=== PATIENT | female | born 1985 | race Caucasian/White ===

== ENCOUNTER 2017-02-12 16:08 | Emergency (ER) | payer SELFPAY ==
[2017-02-12 16:26] VITALS: BP 105/65
--- NOTE | 2017-02-12 16:50 | ER Document Report ---
ED General - General Chief Complaint: Hand Pain Stated Complaint: ANXIETY Time Seen by Provider: 02/12/17 16:38 Mode of Arrival: Ambulatory Information source: Patient TRAVEL OUTSIDE OF THE [place] IN LAST 30 DAYS: No - HPI Patient complains to provider of: Anxiety, recent drug abuse, hand cramping Onset: Yesterday Quality of pain: Cramping Severity: Mild Pain Level: 1 Associated symptoms: None Exacerbated by: Denies Relieved by: Denies Notes: Patient is a 31-year-old female who presents to the emergency room complaining of anxiety related to recent drug abuse, states she was clean for approximately 5 months which she did on her own without assistance from a formal detox or rehab program, stating that she was using meth and heroin on a daily basis, she had an argument with her boyfriend and basically immediately turned back to the drugs, having shot up both heroin and meth yesterday, immediately regretted it and has been having anxiety attacks about it since, leading to her presentation in the emergency room today, she denies any suicidal or homicidal ideation - Related Data Allergies/Adverse Reactions: Penicillins Allergy (Severe, Verified 02/12/17 16:32) Rash, Swelling erythromycin base [Erythromycin Base] Allergy (Intermediate, Verified 02/12/17 16:32) Rash, Swelling levofloxacin [From Levaquin] Allergy (Intermediate, Verified 02/12/17 16:32) Rash, Swelling cefazolin [Cefazolin] Allergy (Verified 02/12/17 16:32) Rash, swelling Home Medications: Current Home Medications No Home Medications 02/12/17 [History] Past Medical History - General Information source: Patient - Social History Smoking Status: Current Every Day Smoker Chew tobacco use (# tins/day): No Frequency of alcohol use: Occasional Drug Abuse: Heroin, Methamphetamine Family History: Reviewed & Not Pertinent, CAD, Hypertension Patient has suicidal ideation: No Patient has homicidal ideation: No - Past Medical History Cardiac Medical History: Reports: Hx DVT - STATES NO LONGER ON COUMADIN OR LOVENOX PER PRIMARY CARE PROVIDER, Hx Pulmonary Embolism Denies: Hx Coronary Artery Disease, Hx Heart Attack, Hx Hypertension Pulmonary Medical History: Denies: Hx Asthma, Hx Bronchitis, Hx COPD, Hx Pneumonia Neurological Medical History: Reports: Hx Migraine. Denies: Hx Cerebrovascular Accident, Hx Seizures Endocrine Medical History: Denies: Hx Diabetes Mellitus Type 1, Hx Diabetes Mellitus Type 2 Renal/ Medical History: Reports: Hx Kidney Stones, Hx Ovarian Cysts. Denies: Hx Peritoneal Dialysis Musculoskeltal Medical History: Denies Hx Arthritis Psychiatric Medical History: Reports: Hx Attention Deficit Hyperactivity Disorder, Hx Bipolar Disorder Infectious Medical History: Reports: Hx C-Diff Past Surgical History: Reports: Hx Kidney (Renal Surgery) - 11/2011, lithotrypsy , Hx Myringotomy, Hx Tubal Ligation. Denies: Hx Appendectomy, Hx Cholecystectomy, Hx Pacemaker - Immunizations Immunizations up to date: Yes Hx Diphtheria, Pertussis, Tetanus Vaccination: Yes - 2009 Review of Systems - Review of Systems Constitutional: No symptoms reported EENT: No symptoms reported Cardiovascular: No symptoms reported Respiratory: No symptoms reported Gastrointestinal: No symptoms reported Genitourinary: No symptoms reported Female Genitourinary: No symptoms reported Musculoskeletal: No symptoms reported Skin: No symptoms reported Hematologic/Lymphatic: No symptoms reported Neurological/Psychological: See HPI -: Yes All other systems reviewed and negative Physical Exam - Vital signs Vitals: Temp Pulse Resp BP Pulse Ox 98.5 F 84 18 105/65 100 02/12/17 16:15 02/12/17 16:15 02/12/17 16:15 02/12/17 16:15 02/12/17 16:15 Interpretation: Normal - General General appearance: Appears well, Alert - HEENT Head: Normocephalic, Atraumatic Eyes: Normal Pupils: PERRL - Respiratory Respiratory status: No respiratory distress Chest status: Nontender Breath sounds: Normal Chest palpation: Normal - Cardiovascular Rhythm: Regular Heart sounds: Normal auscultation Murmur: No - Abdominal Inspection: Normal Distension: No distension Bowel sounds: Normal Tenderness: Nontender Organomegaly: No organomegaly - Back Back: Normal, Nontender - Extremities General upper extremity: Nontender, Normal color, Normal ROM, Normal temperature General lower extremity: Normal inspection, Nontender, Normal color, Normal ROM , Normal temperature, Normal weight bearing. No: Juliana's sign Elbow: Other - Bruising to bilateral antecubital spaces consistent with recent injections - Neurological Neuro grossly intact: Yes Cognition: Normal Orientation: AAOx4 Ledbetter Coma Scale Eye Opening: Spontaneous Vlad Coma Scale Verbal: Oriented Ledbetter Coma Scale Motor: Obeys Commands Vlad Coma Scale Total: 15 Speech: Normal Motor strength normal: LUE, RUE, LLE, RLE Sensory: Normal - Psychological Associated symptoms: Normal affect, Normal mood - Skin Skin Temperature: Warm Skin Moisture: Dry Skin Color: Normal Course - Re-evaluation Re-evalutation: 02/12/17 16:55 Patient is calm and cooperative, denies suicidal or homicidal ideation, admits to recent drug abuse which is likely causing her current symptoms, she does report feeling much better since being the emergency room, symptoms are not present at time of my evaluation and she states she is ready to go home, patient was provided with a list of mental health resources in the area, advised to follow-up appropriately or return if symptoms worsen, patient acknowledges understanding and agreement with this plan - Vital Signs Vital signs: Temp Pulse Resp BP Pulse Ox 98.5 F 84 18 105/65 100 02/12/17 16:15 02/12/17 16:15 02/12/17 16:15 02/12/17 16:15 02/12/17 16:15 Discharge - Discharge Clinical Impression: Substance abuse, Anxiety Condition: Stable Disposition: HOME, SELF-CARE Instructions: Anxiety ([facility]) Additional Instructions: Follow up with your primary care provider in one to 2 days. Return to the emergency room immediately if symptoms worsen or any additional concerns.
== END 2017-02-12 16:56 | disposition home or self-care (01) ==
LOC: ER 16:08
DX: F19.10 Other psychoactive substance abuse, uncomplicated (principal); F11.10 Opioid abuse, uncomplicated; F41.9 Anxiety disorder, unspecified; M79.643 Pain in unspecified hand; F17.210 Nicotine dependence, cigarettes, uncomplicated
CPT/HCPCS: 99283

== ENCOUNTER 2017-07-29 19:59 | Emergency (ER) | payer SELFPAY ==
--- NOTE | 2017-07-29 20:52 | ER Document Report ---
ED Medical Screen (RME) - General Chief Complaint: Abdominal Pain Stated Complaint: ABDOMINAL PAIN Time Seen by Provider: 07/29/17 20:50 Notes: one day of ruq pain, vomiting TRAVEL OUTSIDE OF THE [place] IN LAST 30 DAYS: No - Related Data Allergies/Adverse Reactions: Penicillins Allergy (Severe, Verified 04/19/17 19:42) Rash, Swelling erythromycin base [Erythromycin Base] Allergy (Intermediate, Verified 04/19/17 19:42) Rash, Swelling levofloxacin [From Levaquin] Allergy (Intermediate, Verified 04/19/17 19:42) Rash, Swelling cefazolin [Cefazolin] Allergy (Verified 04/19/17 19:42) Rash, swelling Past Medical History - Social History Frequency of alcohol use: Social Drug Abuse: None - Past Medical History Cardiac Medical History: Reports: Hx DVT - STATES NO LONGER ON COUMADIN OR LOVENOX PER PRIMARY CARE PROVIDER, Hx Pulmonary Embolism Denies: Hx Coronary Artery Disease, Hx Heart Attack, Hx Hypertension Pulmonary Medical History: Denies: Hx Asthma, Hx Bronchitis, Hx COPD, Hx Pneumonia Neurological Medical History: Reports: Hx Migraine. Denies: Hx Cerebrovascular Accident, Hx Seizures Endocrine Medical History: Denies: Hx Diabetes Mellitus Type 1, Hx Diabetes Mellitus Type 2 Renal/ Medical History: Reports: Hx Kidney Stones, Hx Ovarian Cysts. Denies: Hx Peritoneal Dialysis Musculoskeltal Medical History: Denies Hx Arthritis Psychiatric Medical History: Reports: Hx Attention Deficit Hyperactivity Disorder, Hx Bipolar Disorder Infectious Medical History: Reports: Hx C-Diff, Hx MRSA Past Surgical History: Reports: Hx Kidney (Renal Surgery) - 11/2011, lithotrypsy , Hx Myringotomy, Hx Tubal Ligation. Denies: Hx Appendectomy, Hx Cholecystectomy, Hx Pacemaker - Immunizations Immunizations up to date: Yes Hx Diphtheria, Pertussis, Tetanus Vaccination: Yes - 2009 Physical Exam - Vital signs Vitals: Temp Pulse Resp BP Pulse Ox 98.8 F 62 14 118/69 100 07/29/17 20:14 07/29/17 20:14 07/29/17 20:14 07/29/17 20:14 07/29/17 20:14 Course - Vital Signs Vital signs: Temp Pulse Resp BP Pulse Ox 98.8 F 62 14 118/69 100 07/29/17 20:14 07/29/17 20:14 07/29/17 20:14 07/29/17 20:14 07/29/17 20:14
[2017-07-29 21:24] LABS: ABSOLUTE EOSINOPHILS # (AUTO) 0.2 10^3/uL (0.0-0.6); ABSOLUTE LYMPHOCYTES (AUTO) 2.1 10^3/uL (0.5-4.7); ABSOLUTE MONOCYTES (AUTO) 0.6 10^3/uL (0.1-1.4); ABSOLUTE NEUT (AUTO) 4.7 10^3/uL (1.7-8.2); BASOPHILS % (AUTO) 0.3 % (0-2); HEMATOCRIT 41.4 % (36.0-47.0); HEMOGLOBIN 14.3 g/dL (12.0-15.5); LYMPHOCYTES % (AUTO) 27.5 % (13-45); MEAN CORPUSCULAR HEMOGLOBIN 35.5 pg (27.0-33.4); MEAN CORPUSCULAR HGB CONC 34.5 g/dL (32.0-36.0); MEAN CORPUSCULAR VOLUME 103 fl (80-97); MONOCYTES % (AUTO) 7.4 % (3-13); PLATELET COUNT 225 10^3/uL (150-450); RED BLOOD COUNT 4.02 10^6/uL (3.72-5.28); SEGMENTED NEUTROPHILS % (AUTO) 62.8 % (42-78); TOTAL CELLS COUNTED % (AUTO) 100 %; WHITE BLOOD COUNT 7.5 10^3/uL (4.0-10.5)
[2017-07-29 21:39] LABS: APPEARANCE,URINE CLOUDY; BILIRUBIN,URINE NEGATIVE (NEGATIVE); COLOR,URINE YELLOW; GLUCOSE, URINE NEGATIVE (NEGATIVE); KETONES,URINE NEGATIVE (NEGATIVE); LEUKOCYTE ESTERASE,URINE SMALL (NEGATIVE); NITRITE,URINE POSITIVE (NEGATIVE); PROTEIN,URINE NEGATIVE (NEGATIVE); URINE SPECIFIC GRAVITY 1.027; UROBILINOGEN,URINE NEGATIVE mg/dL (<2.0)
[2017-07-29 21:40] LABS: ALANINE AMINOTRANSFERASE 213 U/L (9-52); ALBUMIN 4.8 g/dL (3.5-5.0); ALKALINE PHOSPHATASE 81 U/L (38-126); ANION GAP 10 (5-19); ASPARTATE AMINO TRANSFERASE 76 U/L (14-36); BILIRUBIN,DIRECT 0.2 mg/dL (0.0-0.4); BILIRUBIN,TOTAL 0.3 mg/dL (0.2-1.3); BLOOD UREA NITROGEN 13 mg/dL (7-20); CALCIUM 9.7 mg/dL (8.4-10.2); CARBON DIOXIDE 26 mmol/L (22-30); CHLORIDE 107 mmol/L (98-107); GLUCOSE 93 mg/dL (75-110); LIPASE 70.2 U/L (23-300); POTASSIUM 4.2 mmol/L (3.6-5.0); SODIUM 143.1 mmol/L (137-145); TOTAL PROTEIN 7.6 g/dL (6.3-8.2)
--- NOTE | 2017-07-29 22:14 | ER Document Report ---
ED General - General Chief Complaint: Abdominal Pain Stated Complaint: ABDOMINAL PAIN Time Seen by Provider: 07/29/17 20:50 Mode of Arrival: Ambulatory Information source: Patient Notes: 31 yr old female hx of opiod abuse, and recently tylenol use about 3000 mg a day presents with complaints of epigastric abdominal pain remains to the right upper quadrant and down to the right lower quadrant. Patient notes she has a history of kidney stones notes a temperature 100.0 last night. She notes nausea with vomiting. TRAVEL OUTSIDE OF THE [place] IN LAST 30 DAYS: No - HPI Onset: This morning Onset/Duration: Sudden Quality of pain: Sharp Severity: Mild Pain Level: 1 Associated symptoms: Nausea, Vomiting Exacerbated by: Denies Relieved by: Denies Similar symptoms previously: No Recently seen / treated by doctor: No - Related Data Allergies/Adverse Reactions: Penicillins Allergy (Severe, Verified 04/19/17 19:42) Rash, Swelling erythromycin base [Erythromycin Base] Allergy (Intermediate, Verified 04/19/17 19:42) Rash, Swelling levofloxacin [From Levaquin] Allergy (Intermediate, Verified 04/19/17 19:42) Rash, Swelling cefazolin [Cefazolin] Allergy (Verified 04/19/17 19:42) Rash, swelling Past Medical History - Social History Smoking Status: Current Every Day Smoker Cigarette use (# per day): Yes Chew tobacco use (# tins/day): No Smoking Education Provided: No Frequency of alcohol use: Social Drug Abuse: None, Other - former vicodin/opiod abuse Family History: Reviewed & Not Pertinent, CAD, Hypertension Patient has suicidal ideation: No Patient has homicidal ideation: No - Past Medical History Cardiac Medical History: Reports: Hx DVT - STATES NO LONGER ON COUMADIN OR LOVENOX PER PRIMARY CARE PROVIDER, Hx Pulmonary Embolism Denies: Hx Coronary Artery Disease, Hx Heart Attack, Hx Hypertension Pulmonary Medical History: Denies: Hx Asthma, Hx Bronchitis, Hx COPD, Hx Pneumonia Neurological Medical History: Reports: Hx Migraine. Denies: Hx Cerebrovascular Accident, Hx Seizures Endocrine Medical History: Denies: Hx Diabetes Mellitus Type 1, Hx Diabetes Mellitus Type 2 Renal/ Medical History: Reports: Hx Kidney Stones, Hx Ovarian Cysts. Denies: Hx Peritoneal Dialysis Musculoskeltal Medical History: Denies Hx Arthritis Psychiatric Medical History: Reports: Hx Attention Deficit Hyperactivity Disorder, Hx Bipolar Disorder Infectious Medical History: Reports: Hx C-Diff, Hx MRSA Past Surgical History: Reports: Hx Kidney (Renal Surgery) - 11/2011, lithotrypsy , Hx Myringotomy, Hx Tubal Ligation. Denies: Hx Appendectomy, Hx Cholecystectomy, Hx Pacemaker - Immunizations Immunizations up to date: Yes Hx Diphtheria, Pertussis, Tetanus Vaccination: Yes - 2009 Review of Systems - Review of Systems Notes: REVIEW OF SYSTEMS: CONSTITUTIONAL : Denies fever, chills, or sweats. Denies recent illness. EENT: Denies eye, ear, throat, or mouth pain or symptoms. Denies nasal or sinus congestion or discharge. Denies throat, tongue, or mouth swelling or difficulty swallowing. CARDIOVASCULAR: Denies chest pain. Denies palpitations or racing or irregular heart beat. Denies ankle edema. RESPIRATORY: Denies cough, cold, or chest congestion. Denies shortness of breath, difficulty breathing, or wheezing. GASTROINTESTINAL: Admits to epigastric right upper quadrant and right lower quadrant pain GENITOURINARY: Denies difficulty urinating, painful urination, burning, frequency, blood in urine, or discharge. FEMALE GENITOURINARY: Denies vaginal bleeding, heavy or abnormal periods, irregular periods. Denies vaginal discharge or odor. MUSCULOSKELETAL: Denies back or neck pain or stiffness. Denies joint pain or swelling. SKIN: Denies rash, lesions or sores. HEMATOLOGIC : Denies easy bruising or bleeding. LYMPHATIC: Denies swollen, enlarged glands. NEUROLOGICAL: Denies confusion or altered mental status. Denies passing out or loss of consciousness. Denies dizziness or lightheadedness. Denies headache. Denies weakness or paralysis or loss of use of either side. Denies problems with gait or speech. Denies sensory loss, numbness, or tingling. Denies seizures. PSYCHIATRIC: Denies anxiety or stress. Denies depression, suicidal ideation, or homicidal ideation. ALL OTHER SYSTEMS REVIEWED AND NEGATIVE. PHYSICAL EXAMINATION: GENERAL: Well-appearing, well-nourished and in no acute distress. HEAD: Atraumatic, normocephalic. EYES: Pupils equal round and reactive to light, extraocular movements intact, conjunctiva are normal. ENT: Nares patent, oropharynx clear without exudates. Moist mucous membranes. NECK: Normal range of motion, supple without lymphadenopathy LUNGS: Breath sounds clear to auscultation bilaterally and equal. No wheezes rales or rhonchi. HEART: Regular rate and rhythm without murmurs ABDOMEN: Soft, minimally tender in the epigastric region minimally tender right upper quadrant minimally tender in the right lower quadrant no guarding Female : deferred Musculoskeletal: Normal range of motion, no pitting or edema. No cyanosis. NEUROLOGICAL: Cranial nerves grossly intact. Normal speech, normal gait. Normal sensory, motor exams PSYCH: Normal mood, normal affect. SKIN: Warm, Dry, normal turgor, no rashes or lesions noted. Dictation was performed using [employer] voice recognition software Physical Exam - Vital signs Vitals: Temp Pulse Resp BP Pulse Ox 98.8 F 62 14 118/69 100 07/29/17 20:14 07/29/17 20:14 07/29/17 20:14 07/29/17 20:14 07/29/17 20:14 Course - Re-evaluation Re-evalutation: 07/29/17 22:13 Patient's lab work does note elevation of liver enzymes, this would be consistent with her Tylenol intake that she admits to, she does not take greater than 3000 day but has been consistently taking it since she is dealing with her opioid abuse. On urinalysis positive nitrates are noted - Vital Signs Vital signs: Temp Pulse Resp BP Pulse Ox 98.8 F 62 14 118/69 100 07/29/17 20:14 07/29/17 20:14 07/29/17 20:14 07/29/17 20:14 07/29/17 20:14 - Laboratory Result Diagrams: 07/29/17 21:05 07/29/17 21:05 Laboratory results interpreted by me: 07/29/17 07/29/17 07/29/17 21:05 21:05 21:05 MCV 103 H MCH 35.5 H AST 76 H ALT 213 H Urine Nitrite POSITIVE H Ur Leukocyte Esterase SMALL H Discharge - Discharge Clinical Impression: Flank pain UTI (urinary tract infection) Qualifiers: Urinary tract infection type: acute cystitis Hematuria presence: without hematuria Qualified Code(s): N30.00 - Acute cystitis without hematuria Condition: Stable Disposition: HOME, SELF-CARE Instructions: Pyelonephritis ([facility]) Additional Instructions: Follow up with your physician tomorrow for further care or return to the ED IMMEDIATELY if symptoms worsen or new concerns occur. If you cannot afford to follow up with your primary care physician a list of low cost clinics have been provided at the end of your discharge papers as well. Prescriptions: Metoclopramide HCl [Reglan 10 mg Tablet] 1 - 2 tab PO Q6 #10 tablet Sulfamethoxazole/Trimethoprim [Bactrim Ds Tablet] 1 each PO BID #14 tablet Tramadol HCl 50 mg PO BID #8 tablet
--- NOTE | 2017-07-29 23:59 | RADIOLOGY REPORT (SQ) ---
EXAM DESCRIPTION: U/S ABDOMEN LIMITED W/O DOP CLINICAL HISTORY: 31 years, Female, ruq pain COMPARISON: None. TECHNIQUE: Transabdominal LIMITATIONS: None. FINDINGS: Gallbladder, 0.2 cm diameter common duct, liver, pancreas, aorta, and 11.5 cm right kidney appear of normal size, shape, echotexture, and vascularity. No free fluid. IMPRESSION: No acute findings.
[2017-07-30] MEDS ORDERED: NITROFURANTOIN MONOHYD/M-CRYST 100 MG CAPSULE PO ONE (00:14)
[2017-07-30] MEDS ORDERED: SULFAMETHOXAZOLE/TRIMETHOPRIM 800-160 MG TABLET PO ONE (00:15)
[2017-07-30] MEDS ORDERED: TRAMADOL HCL 50 MG TABLET PO ONE (00:17)
[2017-07-30 01:33] VITALS: BP 115/67
== END 2017-07-30 01:30 | disposition home or self-care (01) ==
LOC: ER 19:59
DX: N30.00 Acute cystitis without hematuria (principal); R10.9 Unspecified abdominal pain; R11.2 Nausea with vomiting, unspecified; F17.210 Nicotine dependence, cigarettes, uncomplicated; Z88.0 Allergy status to penicillin; Z88.3 Allergy status to other anti-infective agents; Z86.14 Personal history of Methicillin resistant Staphylococcus aureus infection; Z98.51 Tubal ligation status; Z87.442 Personal history of urinary calculi; Z86.718 Personal history of other venous thrombosis and embolism
CPT/HCPCS: 36415; 76705; 80053; 81001; 81025; 83690; 85025; 99284

== ENCOUNTER 2017-08-03 19:29 | Emergency (ER) | payer SELFPAY ==
[2017-08-03 19:55] VITALS: BP 112/67
--- NOTE | 2017-08-03 20:22 | ER Document Report ---
ED General - General Chief Complaint: Redness of Eye Stated Complaint: LEFT EYE SWELLING Time Seen by Provider: 08/03/17 20:21 Mode of Arrival: Ambulatory Information source: Patient Notes: Patient is a 31 year old female who presents with left eye redness, swelling and headache that started yesterday. She states she woke up yesterday with her eye matted shut. She does wear glasses but no contacts. She has not tried anything for this. Denies any blurred vision, dizziness, visual disturbances, eyelid swelling. TRAVEL OUTSIDE OF THE [place] IN LAST 30 DAYS: No - Related Data Allergies/Adverse Reactions: Penicillins Allergy (Severe, Verified 04/19/17 19:42) Rash, Swelling erythromycin base [Erythromycin Base] Allergy (Intermediate, Verified 04/19/17 19:42) Rash, Swelling levofloxacin [From Levaquin] Allergy (Intermediate, Verified 04/19/17 19:42) Rash, Swelling cefazolin [Cefazolin] Allergy (Verified 04/19/17 19:42) Rash, swelling Past Medical History - General Information source: Patient - Social History Smoking Status: Current Every Day Smoker Family History: Reviewed & Not Pertinent, CAD, Hypertension - Past Medical History Cardiac Medical History: Reports: Hx DVT - STATES NO LONGER ON COUMADIN OR LOVENOX PER PRIMARY CARE PROVIDER, Hx Pulmonary Embolism Denies: Hx Coronary Artery Disease, Hx Heart Attack, Hx Hypertension Pulmonary Medical History: Denies: Hx Asthma, Hx Bronchitis, Hx COPD, Hx Pneumonia Neurological Medical History: Reports: Hx Migraine. Denies: Hx Cerebrovascular Accident, Hx Seizures Endocrine Medical History: Denies: Hx Diabetes Mellitus Type 1, Hx Diabetes Mellitus Type 2 Renal/ Medical History: Reports: Hx Kidney Stones, Hx Ovarian Cysts. Denies: Hx Peritoneal Dialysis Musculoskeltal Medical History: Denies Hx Arthritis Psychiatric Medical History: Reports: Hx Attention Deficit Hyperactivity Disorder, Hx Bipolar Disorder Infectious Medical History: Reports: Hx C-Diff, Hx MRSA Past Surgical History: Reports: Hx Kidney (Renal Surgery) - 11/2011, lithotrypsy , Hx Myringotomy, Hx Tubal Ligation. Denies: Hx Appendectomy, Hx Cholecystectomy, Hx Pacemaker - Immunizations Immunizations up to date: Yes Hx Diphtheria, Pertussis, Tetanus Vaccination: Yes - 2009 Review of Systems - Review of Systems Constitutional: No symptoms reported EENT: See HPI Cardiovascular: No symptoms reported Respiratory: No symptoms reported Gastrointestinal: No symptoms reported Genitourinary: No symptoms reported Female Genitourinary: No symptoms reported Musculoskeletal: No symptoms reported Skin: No symptoms reported Hematologic/Lymphatic: No symptoms reported Neurological/Psychological: No symptoms reported Physical Exam - Vital signs Vitals: Temp Pulse Resp BP Pulse Ox 98.7 F 72 20 112/67 100 08/03/17 19:53 08/03/17 19:53 08/03/17 19:53 08/03/17 19:53 08/03/17 19:53 - Notes Notes: PHYSICAL EXAM: CONSTITUTIONAL: Alert and oriented, well-appearing and in no acute distress. HENT: Normocephalic, atraumatic. Trachea midline. Uvula midline. Moist mucous membranes. EYES: Pupils equal round and reactive to light, EOM intact. Sclera anicteric, conjunctiva are normal. No entrapment. left eye erythematous conjunctiva, neg Long's sign, no dendrites. No eyelid swelling or preorbital swelling. NECK: supple without lymphadenopathy. No midline tenderness or paraspinous muscle spasms. No step-offs or deformities. ROM intact. HEART: Regular rate and rhythm without murmurs. LUNGS: CTAB and equal. No wheezes, rales or rhonchi. EXTREMITIES: no bony tenderness, erythema, edema, ecchymosis or deformity. Normal range of motion, no pitting edema. No cyanosis. Cap Refill <3 seconds. NEURO: Cranial nerves grossly intact. Normal sensory/motor exams. PSYCH: Normal mood, normal affect. SKIN: Warm and dry. Normal turgor. No rashes or lesions noted. Course - Re-evaluation Re-evalutation: 08/03/17 20:34 Patient seen and examined. VSS, NAD, well appearing and well hydrated. Speaking in full sentences without difficulty, ambulatory in ED without difficulty. Exam consistent with conjunctivitis. Low suspicion for preorbital or periorbital cellulitis or other emergent condition at this time. Will treat with abx opth soln. Patient in agreement with plan. At this time, will discharge with return precautions and follow-up recommendations. Verbal discharge instructions given at the bedside and opportunity for questions given. Medication warnings reviewed. Patient is in agreement with this plan and has verbalized understanding of return precautions and the need for primary care follow-up in the next 24-72 hours. - Vital Signs Vital signs: Temp Pulse Resp BP Pulse Ox 98.7 F 72 20 112/67 100 08/03/17 19:53 08/03/17 19:53 08/03/17 19:53 08/03/17 19:53 08/03/17 19:53 Discharge - Discharge Clinical Impression: Bacterial conjunctivitis of left eye Condition: Stable Disposition: HOME, SELF-CARE Instructions: Conjunctivitis ([facility]), Eyedrop Use ([facility]) Additional Instructions: FOLLOW-UP CARE: If you have been referred to a physician for follow-up care, call the physician s office for an appointment as you were instructed or within the next two days. If you experience worsening or a significant change in your symptoms, notify the physician immediately or return to the Emergency Department at any time for re-evaluation. Prescriptions: Polymyxin B Sulf/Trimethoprim [Polytrim Eye Drops] 1 drop LFT_EYE QID 5 Days ml Forms: Return to Work
[2017-08-03] MEDS ORDERED: HYDROCODONE/ACETAMINOPHEN 5-325 MG (6 TAB/ER DISP) PO PRN (20:30)
== END 2017-08-03 21:15 | disposition home or self-care (01) ==
LOC: ER 19:29
DX: H10.89 Other conjunctivitis (principal); R51 Headache; R22.0 Localized swelling, mass and lump, head; F17.200 Nicotine dependence, unspecified, uncomplicated
CPT/HCPCS: 99282

== ENCOUNTER 2017-08-07 19:45 | Emergency (ER) | payer SELFPAY ==
[2017-08-07] MEDS ORDERED: TETRACAINE HCL 0.5% OPH SOLN 2 ML OU ONE (20:54)
--- NOTE | 2017-08-07 22:20 | ER Document Report ---
HPI - HPI Patient complains to provider of: Bilateral eye swelling drainage Onset: Other Pain Level: 4 Context: 31-year-old female noncontact lens wear is complaining of redness and drainage to both of her eyes. She was seen Thursday in the emergency department and treated with Polytrim due to the left eye. She started using it on the right eye because it started to itch and now she has increased swelling and drainage especially to the left eye. No fever. Associated Symptoms: None Exacerbated by: Denies Relieved by: Denies Similar symptoms previously: No Recently seen / treated by doctor: Yes - ROS ROS below otherwise negative: Yes Systems Reviewed and Negative: Yes All other systems reviewed and negative - CONSTITUTIONAL Constitutional: DENIES: Fever, Chills - REPRODUCTIVE LMP: na Reproductive: DENIES: : <PABLITO MICHAEL - Last Filed: 08/08/17 19:28> Past Medical History - General Information source: Patient - Social History Smoking Status: Current Every Day Smoker Frequency of alcohol use: None Drug Abuse: None Lives with: Spouse/Significant other Family History: Reviewed & Not Pertinent, CAD, Hypertension Patient has suicidal ideation: No Patient has homicidal ideation: No - Past Medical History Cardiac Medical History: Reports: Hx DVT - STATES NO LONGER ON COUMADIN OR LOVENOX PER PRIMARY CARE PROVIDER, Hx Pulmonary Embolism Neurological Medical History: Reports: Hx Migraine Renal/ Medical History: Reports: Hx Kidney Stones, Hx Ovarian Cysts. Denies: Hx Peritoneal Dialysis Psychiatric Medical History: Reports: Hx Attention Deficit Hyperactivity Disorder, Hx Bipolar Disorder Infectious Medical History: Reports: Hx C-Diff, Hx MRSA Past Surgical History: Reports: Hx Kidney (Renal Surgery) - 11/2011, lithotrypsy , Hx Myringotomy, Hx Tubal Ligation - Immunizations Immunizations up to date: Yes Hx Diphtheria, Pertussis, Tetanus Vaccination: Yes - 2009 <PABLITO MICHAEL - Last Filed: 08/08/17 19:28> Vertical Provider Document - CONSTITUTIONAL Agree With Documented VS: Yes Exam Limitations: No Limitations - INFECTION CONTROL TRAVEL OUTSIDE OF THE [place] IN LAST 30 DAYS: No - HEENT HEENT: Conjuctival Injection - severe left, moderate right, anterior chambers clear, no limbic flair, no fluorescein uptake, mild swellin that is non tender to left upper and lower lids. several small bilateral preauricular nodes., PERRLA Notes: dr. posada also looked at the eyes. Pt able to see and count my fingers with the left eye when it is held open. - NECK Neck: Supple - RESPIRATORY Respiratory: Breath Sounds Normal, No Respiratory Distress O2 Sat by Pulse Oximetry: 99 - NEURO Level of Consciousness: Awake, Alert - DERM Integumentary: Warm, Dry, No Rash <PABLITO MICHAEL - Last Filed: 08/08/17 19:28> Course - Re-evaluation Re-evalutation: 08/07/17 22:[address] Perez to examine the patient who recommends also to stop the Polytrim drops and get Naphcon for the irritation and saline drops. - Vital Signs Vital signs: Temp Pulse Resp BP Pulse Ox 98.4 F 78 16 122/72 99 08/07/17 19:52 08/07/17 19:52 08/07/17 19:52 08/07/17 19:52 08/07/17 19:52 <PABLITO MICHAEL - Last Filed: 08/08/17 19:28> - Re-evaluation Re-evalutation: Pt with bilateral conjunctival erythema and watery discharge. No signs of periorbital or orbital cellulitis and she has no change in vision. Suspect a combination of viral and allergic conjunctivitis. Spoke to patient about symptomatic treatment and follow-up with ophthalmology for a recheck of her symptoms. - Vital Signs Vital signs: Temp Pulse Resp BP Pulse Ox 97.9 F 59 L 18 100/65 99 08/07/17 22:47 08/07/17 22:47 08/07/17 22:47 08/07/17 22:47 08/08/17 19:31 <SAVITA POSADA E - Last Filed: 08/08/17 21:31> Discharge <PABLITO MICHAEL - Last Filed: 08/08/17 19:28> <SAVITA POSADA - Last Filed: 08/08/17 21:31> - Discharge Clinical Impression: Acute viral conjunctivitis of both eyes Condition: Good Disposition: HOME, SELF-CARE Instructions: Acetaminophen, Conjunctivitis ([facility]), Eyedrop Use ([facility]) Additional Instructions: warm compress Naphcon eyedrops 2 drops each eye four times per day saline eye drops four times per day stop the polytrim eyedrops to er if worse if persists on thursday, see eye doctor Forms: Return to Work Referrals: BERNARD GORDON MD [ACTIVE STAFF] - 08/10/17
[2017-08-07 22:50] VITALS: BP 100/65
== END 2017-08-07 22:50 | disposition home or self-care (01) ==
LOC: ER 19:45
DX: B30.8 Other viral conjunctivitis (principal); R22.0 Localized swelling, mass and lump, head; F17.200 Nicotine dependence, unspecified, uncomplicated
CPT/HCPCS: 99283

== ENCOUNTER 2017-11-12 20:27 | Emergency (ER) | payer SELFPAY ==
[2017-11-12 20:44] VITALS: BP 120/74
[2017-11-12] MEDS ORDERED: LIDOCAINE 1% INJ-PF (10 MG/ML) 30 ML SDV INJ ONE (22:04)
[2017-11-12] MEDS ORDERED: SULFAMETHOXAZOLE/TRIMETHOPRIM 800-160 MG TABLET PO ONE (22:04)
[2017-11-12] MEDS ORDERED: ACETAMINOPHEN 325 MG TABLET PO ONE (22:04)
--- NOTE | 2017-11-12 22:05 | ER Document Report ---
HPI - HPI Pain Level: 4 Context: Patient is a 32-year-old female who presents emergency room with a chief complaint of abscess in the left axilla. Patient states that she had had a small bump there that got worse over the past 3 days. She denies any active drainage at home. She denies any fevers or chills. She admits to tenderness and redness over the site. She admits to previous history of MRSA. - CONSTITUTIONAL Constitutional: DENIES: Fever, Chills - EENT EENT: DENIES: Sore Throat, Ear Pain, Eye problems - NEURO Neurology: DENIES: Headache, Weakness, Vision blurred, Dizzinesss / Vertigo - CARDIOVASCULAR Cardiovascular: DENIES: Chest pain - RESPIRATORY Respiratory: DENIES: Trouble Breathing, Coughing - GASTROINTESTINAL Gastrointestinal: DENIES: Abdominal Pain, Black / Bloody Stools - REPRODUCTIVE Reproductive: DENIES: : - MUSCULOSKELETAL Musculoskeletal: DENIES: Extremity pain Past Medical History - Social History Smoking Status: Current Every Day Smoker Chew tobacco use (# tins/day): No Frequency of alcohol use: None Drug Abuse: None Family History: Reviewed & Not Pertinent, CAD, Hypertension Patient has suicidal ideation: No Patient has homicidal ideation: No - Past Medical History Cardiac Medical History: Reports: Hx DVT - STATES NO LONGER ON COUMADIN OR LOVENOX PER PRIMARY CARE PROVIDER, Hx Pulmonary Embolism Neurological Medical History: Reports: Hx Migraine Renal/ Medical History: Reports: Hx Kidney Stones, Hx Ovarian Cysts. Denies: Hx Peritoneal Dialysis Psychiatric Medical History: Reports: Hx Attention Deficit Hyperactivity Disorder, Hx Bipolar Disorder Infectious Medical History: Reports: Hx C-Diff, Hx MRSA Past Surgical History: Reports: Hx Kidney (Renal Surgery) - 11/2011, lithotrypsy , Hx Myringotomy, Hx Tubal Ligation - Immunizations Immunizations up to date: Yes Hx Diphtheria, Pertussis, Tetanus Vaccination: Yes - 2009 Vertical Provider Document - CONSTITUTIONAL Agree With Documented VS: Yes Notes: PHYSICAL EXAM GENERAL: Alert, interacts well. EXTREMITIES: Moves all 4 extremities spontaneously. No edema, radial and dorsalis pedis pulses 2/4 bilaterally. No cyanosis. NEUROLOGICAL: Alert and oriented x4. Normal speech. PSYCH: Normal affect, normal mood. SKIN: Warm, dry, normal turgor. Left axilla with evidence of a 3 cm in diameter abscess with central fluctuance and minimal overlying erythema no evidence of surrounding induration - INFECTION CONTROL TRAVEL OUTSIDE OF THE [place] IN LAST 30 DAYS: No Course - Re-evaluation Re-evalutation: 11/12/17 23:07 Patient is a 32-year-old female is hemodynamic stable, no acute distress and afebrile. Site was I&D at the bedside and packing placed. Patient initiated on Bactrim for MRSA coverage to follow-up in 3 days for recheck. - Vital Signs Vital signs: Temp Pulse Resp BP Pulse Ox 97.7 F 88 16 120/74 99 11/12/17 20:42 11/12/17 20:42 11/12/17 20:42 11/12/17 20:42 11/12/17 20:42 Procedures - Incision and Drainage Left Arm Type: Simple Anesthetic type: 1% Lidocaine mL's of anesthetic: 10 Blade size: 11 I&D procedure: Betadine prep applied, Iodoform packing placed Incision Method: Incision made by scalpel Amount/type of drainage: 10cc Discharge - Discharge Clinical Impression: Abscess Condition: Good Disposition: HOME, SELF-CARE Additional Instructions: Follow-up in 3 days for wound check ABSCESS: You have an abscess (boil). This a pus-forming infection, usually due to staph. Some boils may be left to drain on their own, but most require lancing. From the time the tender lump first appears, it may be three or four days before the abscess is ready to elpidio. Local heat and rest help at this stage of treatment. An antibiotic may prevent spread of the infection. Once the abscess is opened, packing may be placed into it. This is done so pus is not sealed inside by premature closure of the cavity. The packing will be removed at your follow-up visit or you may be advised to remove it yourself at home. Sometimes this packing must be replaced a few times during healing. The wound will heal with surprisingly little scar. Depending on the size and location of an abscess, healing can take one to four weeks. You may shower and wash the area around the incision site two or three times a day. Antibiotics may be prescribed, but are usually not necessary after an abscess has been drained. If you develop fever, chills, worsening pain, or increasing swelling in the area, call the doctor or return immediately. POST INCISION AND DRAINAGE: You have had an incision made to allow drainage of an abscess. The incision must remain open so that pus and debris can drain from the wound. If the abscess cavity is large, packing is placed. This keeps the tissues from collapsing and trapping pus inside, while the body shrinks the cavity. The packing may need to be replaced every day or two. The physician will instruct you on the packing. Keep a bulky dressing over the area. Replace it if it becomes saturated with blood or pus. Do not disturb the packing (if present). You may shower and cleanse the area with gentle soap and warm water two or three times a day. Local warmth may be soothing, and may promote faster healing. Return if you develop high fever or chills, or if you note spreading redness, increasing swelling, or increasing tenderness. MRSA CELLULITIS: You have an infection of your skin and underlying soft tissues called cellulitis. This is due to bacteria, which can enter through any break in the skin, or even through an irritated hair follicle. Untreated, cellulitis will usually worsen and may form an abscess which requires draining. Although many bacterial organisms can cause cellulitis and abscess formations, the most likely bacteria is Methicillin-Resistant Staph Aureus, or MRSA for short. Antibiotics are required. Usually, warm packs or warm soaks, and elevation of the infected area are recommended. You should start getting better within 24 to 36 hours. Most infections respond quickly to the right medication. Follow-up care is important, however, to check for abscess (boil) formation, unsuspected foreign body, or resistant infection. If you develop fever, chills, or if the area of infection is becoming rapidly more swollen or painful, call the doctor at once. ORAL NARCOTIC MEDICATION: You have been given a prescription for pain control. This medication is a narcotic. It's best taken with food, as nausea can result if taken on an empty stomach. Don't operate machinery or drive within six hours of taking this medication. Do not combine this medicine with alcohol, or with any medication which can cause sedation (such as cold tablets or sleeping pills) unless you get permission from the physician. Narcotics tend to cause constipation. If possible, drink plenty of fluids and eat a diet high in fiber and fruits. TRIMETHOPRIM-SULFA: You have been given a prescription for trimethoprim-sulfa (TMS, Septra, Bactrim). This is a combination antibiotic of the sulfa class, often used for urinary tract infections, middle ear infections, bronchitis, shigella intestinal infection, and Pneumocystis pneumonia. TMS is usually well-tolerated. Occasional side effects include nausea and decreased appetite. Septra is not recommended for infants less than two months of age. Do not take this medication if you have experienced severe side effects or allergy to sulfa medicine. You should stop this medicine at once and contact your physician if you develop any rash, joint pain, shortness of breath, bruising, or jaundice ( yellow color in the skin), or if you develop any other new or unusual symptoms. FOLLOW-UP CARE: Most simple abscesses will not require a follow up visit. If you had packing placed in the abscess, remove it as instructed by the physician. If you have been referred to a physician for follow-up care, call the physicians office for an appointment as you were instructed or within the next two days. If you experience worsening or a significant change in your symptoms, return to the Emergency Department at any time for re-evaluation. Prescriptions: Sulfamethoxazole/Trimethoprim [Bactrim Ds Tablet] 1 each PO BID #10 tablet
[2017-11-12] MEDS ORDERED: HYDROCODONE/ACETAMINOPHEN 5-325 MG (6 TAB/ER DISP) PO PRN (23:06)
== END 2017-11-12 23:57 | disposition home or self-care (01) ==
LOC: ER 20:27
DX: L02.412 Cutaneous abscess of left axilla (principal); Z86.14 Personal history of Methicillin resistant Staphylococcus aureus infection; F17.200 Nicotine dependence, unspecified, uncomplicated
CPT/HCPCS: 99283; 10060; A6266; J3490

== ENCOUNTER 2018-01-12 16:28 | Emergency (ER) | payer SELFPAY ==
[2018-01-12 16:45] VITALS: BP 116/67
[2018-01-12] MEDS ORDERED: LIDOCAINE 1%/EPINEPHRINE INJ 20 ML VIAL INJ ONE (18:15)
[2018-01-12] MEDS ORDERED: HYDROCODONE/ACETAMINOPHEN 5-325 MG TABLET PO ONE (18:15)
--- NOTE | 2018-01-12 18:18 | ER Document Report ---
ED General - General Chief Complaint: Abscess Stated Complaint: POSSIBLE ABSCESS Time Seen by Provider: 01/12/18 18:06 TRAVEL OUTSIDE OF THE [place] 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 She has a history of MRSA in the past. Gradual onset of 2 3 days, swelling redness and pain in her left buttocks, burning, sharp, nonradiating. Typical location. No other modifying factors, no other associated symptoms, no other provocative or palliative factors. - Related Data Allergies/Adverse Reactions: Penicillins Allergy (Severe, Verified 04/19/17 19:42) Rash, Swelling erythromycin base [Erythromycin Base] Allergy (Intermediate, Verified 04/19/17 19:42) Rash, Swelling levofloxacin [From Levaquin] Allergy (Intermediate, Verified 04/19/17 19:42) Rash, Swelling cefazolin [Cefazolin] Allergy (Verified 04/19/17 19:42) Rash, swelling Past Medical History - Social History Smoking Status: Smoker,Current Status Unk Family History: Reviewed & Not Pertinent, CAD, Hypertension - Past Medical History Cardiac Medical History: Reports: Hx DVT - STATES NO LONGER ON COUMADIN OR LOVENOX PER PRIMARY CARE PROVIDER, Hx Pulmonary Embolism Neurological Medical History: Reports: Hx Migraine Renal/ Medical History: Reports: Hx Kidney Stones, Hx Ovarian Cysts. Denies: Hx Peritoneal Dialysis Psychiatric Medical History: Reports: Hx Attention Deficit Hyperactivity Disorder, Hx Bipolar Disorder Infectious Medical History: Reports: Hx C-Diff, Hx MRSA Past Surgical History: Reports: Hx Kidney (Renal Surgery) - 11/2011, lithotrypsy , Hx Myringotomy, Hx Tubal Ligation - Immunizations Immunizations up to date: Yes Hx Diphtheria, Pertussis, Tetanus Vaccination: Yes - 2009 Review of Systems - Review of Systems Notes: Review of systems as in history of present illness, otherwise no significant headache, chest pain, abdominal pain. Physical Exam - Vital signs Vitals: Temp Pulse Resp BP Pulse Ox 98.7 F 100 16 116/67 99 01/12/18 16:43 01/12/18 16:43 01/12/18 16:43 01/12/18 16:43 01/12/18 16:43 - Notes Notes: General: Well devloped, no acute distress. HEENT: Normocephalic, atraumatic. Pupils equal round reactive to light. Mucosa moist. No JVD. Chest: No trauma, normal excursion. Respiratory: Good air exchange, normal excursion. Cardiac: Regular rhythm Abdomen: Soft, benign. Nondistended. Back: No asymmetry or gross abnormality. Motor: Grossly normal power and tone. Neurologic: Alert, nonfocal. Vascular: Well perfused Skin: No petechiae or purpura Left medial mid buttock show 3 x 5 cm area of induration, slight internal fluctuance, mild erythema Course - Re-evaluation Re-evalutation: 01/12/18 18:17 Ill-appearing female cutaneous abscess, proceed with incision and drainage, reevaluate. - Vital Signs Vital signs: Temp Pulse Resp BP Pulse Ox 98.7 F 100 16 116/67 99 01/12/18 16:43 01/12/18 16:43 01/12/18 16:43 01/12/18 16:43 01/12/18 16:43 Procedures - Incision and Drainage Right Mid- Buttock Type: Simple Anesthetic type: 1% Lidocaine w/epi Blade size: 11 I&D procedure: Alvaro applied Incision Method: Incision made by scalpel Notes: 01/12/18 19:14 3 cm incision is made, large amount of material, wound irrigated, packed with iodoform gauze. Discharge - Discharge Clinical Impression: Abscess, Abscess of buttock, left Condition: Good Disposition: HOME, SELF-CARE Additional Instructions: Have wound rechecked in 2-3 days
[2018-01-12] MEDS ORDERED: HYDROCODONE/ACETAMINOPHEN 5-325 MG (6 TAB/ER DISP) PO PRN (19:15)
== END 2018-01-12 19:40 | disposition home or self-care (01) ==
LOC: ER 16:28
PROC: 0H98XZZ Drainage of Buttock Skin, External Approach (ICD-10-PCS; principal; 2018-01-12)
DX: L02.31 Cutaneous abscess of buttock (principal); F17.200 Nicotine dependence, unspecified, uncomplicated; Z86.14 Personal history of Methicillin resistant Staphylococcus aureus infection; Z88.0 Allergy status to penicillin; Z88.3 Allergy status to other anti-infective agents; Z86.718 Personal history of other venous thrombosis and embolism; Z98.51 Tubal ligation status
CPT/HCPCS: 99283; 10060; A6266; J3490